=== PATIENT | male | born 1965 | race Caucasian/White ===

== ENCOUNTER → 2016-11-03 | Outpatient (CLI) | payer BC ==
[~2016-11-03] MED LIST: ASCO10003 PO; ASPCH81X PO; ATOR-24 PO; EPP3 IM; LOSA50TA6 PO; MULT-506 PO; PRED50TA PO; RED YEAST RICE PO
== END | disposition home or self-care (01) ==
LOC: C.LAB1850 07:34
PROVIDERS: ATTEND Internal Medicine
DX: E78.5 Hyperlipidemia, unspecified (principal)

== ENCOUNTER → 2017-01-19 | Outpatient (CLI) | payer BC ==
--- NOTE | 2017-01-24 13:31 | CODING QUERY MEDICAL NECESSITY ---
SUPPORTING DIAGNOSIS NEEDED A supporting diagnosis is required for the test/procedure performed on this patient in order for us to be reimbursed by the patient's insurance. Please provide a supporting diagnosis for the following test/procedure listed below next to the test name along with your signature. *If there is no additional diagnosis for this patient that would support the following test/procedure please document that below next to the test/procedure. Test(s)/Procedure(s) that require a supporting diagnosis: DOS 01/19 * Vitamin D DIAGNOSIS: Provider Signature: Date: Thank you [facility] Once completed, please kindly fax back to [phone] For questions please call [phone]
== END | disposition home or self-care (01) ==
LOC: C.LAB1850 07:22
PROVIDERS: ATTEND Internal Medicine
DX: R20.0 Anesthesia of skin (principal); E55.9 Vitamin D deficiency, unspecified

== ENCOUNTER → 2017-06-05 | Outpatient (CLI) | payer BC ==
[2017-06-05 09:32] LABS: BASO % 0.3 %; BASO ABS # 0.02 K/uL (0-0.2); COMPLETE YES; EOS % 1.5 %; LYMPH ABS # 1.36 K/uL (1.2-3.4); MEAN CORPUSCULAR HEMOGLOBIN 31.1 pg (25-34); MEAN CORPUSCULAR HGB CONC 33.8 g/dl (32-36); NEUT % 66.2 %; PLATELET COUNT 354 K/uL (130-400); RED BLOOD COUNT 4.89 M/uL (4.7-6.1); WHITE BLOOD COUNT 6.18 K/uL (4.8-10.8)
[2017-06-05 11:38] LABS: ALKALINE PHOSPHATASE 120 U/L (45-117); ALT/SGPT 50 U/L (12-78); AST/SGOT 21 U/L (15-37); BLOOD UREA NITROGEN 12 mg/dl (7-18); BUN/CREATININE RATIO 11.2 (10-20); CALCIUM 9.2 mg/dl (8.5-10.1); CARBON DIOXIDE 28 mmol/L (21-32); CHLORIDE 107 mmol/L (98-107); CHOLESTEROL 149 mg/dl (0-200); GLUCOSE 90 mg/dl (70-99); POTASSIUM 4.2 mmol/L (3.5-5.1); SODIUM 141 mmol/L (136-145)
[2017-06-05 11:48] LABS: CHOLESTEROL/HDL RATIO 3.6; HDL CHOLESTEROL 41 mg/dl; LDL CHOLESTEROL CALCULATED 85 mg/dl; PROSTATE SPECIFIC ANTIGEN 0.641 ng/ml (0.000-4.000); TRIGLYCERIDES 114 mg/dl (0-150); VERY LOW DENSITY LIPOPROT CALC 23 mg/dl
[2017-06-05 13:42] LABS: URINE APPEARANCE CLEAR (CLEAR); URINE BILIRUBIN NEG (NEG); URINE COLOR YELLOW; URINE EPITHELIAL CELL AUTO 0-5 /lpf (0-5); URINE NITRITE NEG (NEG); URINE SPECIFIC GRAVITY 1.016 (1.000-1.030); UROBILINOGEN NEG (NEG); ZZUR CULT IF INDIC CLEAN CATCH NO
[2017-06-05 13:48] LABS: MANUAL MICROSCOPIC REQUIRED? NO; REVIEW REQ? NO
== END | disposition home or self-care (01) ==
LOC: C.LAB1850 07:13
PROVIDERS: ATTEND Internal Medicine
DX: I10 Essential (primary) hypertension (principal); R60.9 Edema, unspecified; E78.5 Hyperlipidemia, unspecified; Z12.5 Encounter for screening for malignant neoplasm of prostate

== ENCOUNTER → 2018-05-16 | Outpatient (CLI) | payer BC ==
[~2018-05-16] MED LIST changes: -EPP3 IM; -PRED50TA PO
== END | disposition home or self-care (01) ==
LOC: C.LAB1850 07:05
PROVIDERS: ATTEND Internal Medicine
DX: N45.2 Orchitis (principal); M25.50 Pain in unspecified joint; E78.5 Hyperlipidemia, unspecified; E55.9 Vitamin D deficiency, unspecified